=== PATIENT | female | born 1955 | race Caucasian/White ===

== ENCOUNTER 2019-08-18 07:34 | Day surgery (SDC) | payer OTHER ==
[~2019-08-18] VITALS: Ht 162.6 cm; Wt 73.5 kg
[~2019-08-18 07:34] MED LIST: DOCU100C16 PO; LEVO112T2 PO; LIDOCAINE 2% INJ 100 MG/5 ML SDV (FOR ANES.) As Ordered ONE; NS 1,000 ML IV ONE; PROPOFOL 200 MG/20 ML VIAL As Ordered ONE; SENN-83 PO
--- NOTE | 2019-08-18 10:03 | ROOR ---
Patient Name: Gissel Diego Procedure Date: 08/18/2019 9:11 AM Date of : 1955 Age: 64 Room: [facility] Gender: Female Note Status: Finalized Procedure: Colonoscopy Indications: Screening for colorectal malignant neoplasm Providers: Thaddeus Navarro MD Referring MD: Kalin ELLSWORTH MD Requesting Provider: Medicines: Monitored Anesthesia Care Complications: No immediate complications. Procedure: Pre-Anesthesia Assessment: - Prior to the procedure, a History and Physical was performed, and patient medications and allergies were reviewed. The patient is competent. The risks and benefits of the procedure and the sedation options and risks were discussed with the patient. All questions were answered and informed consent was obtained. Patient identification and proposed procedure were verified by the physician, the nurse and the anesthesiologist in the procedure room. Mental Status Examination: alert and oriented. Airway Examination: normal oropharyngeal airway and neck mobility. Respiratory Examination: clear to auscultation. CV Examination: normal. Prophylactic Antibiotics: The patient does not require prophylactic antibiotics. Prior Anticoagulants: The patient has taken no previous anticoagulant or antiplatelet agents. ASA Grade Assessment: II - A patient with mild systemic disease. After reviewing the risks and benefits, the patient was deemed in satisfactory condition to undergo the procedure. The anesthesia plan was to use monitored anesthesia care (MAC). Immediately prior to administration of medications, the patient was re-assessed for adequacy to receive sedatives. The heart rate, respiratory rate, oxygen saturations, blood pressure, adequacy of pulmonary ventilation, and response to care were monitored throughout the procedure. The physical status of the patient was re-assessed after the procedure. The Colonoscope was introduced through the anus and advanced to the terminal ileum, with identification of the appendiceal orifice and IC valve. The colonoscopy was performed without difficulty. The patient tolerated the procedure well. The quality of the bowel preparation was good. The ileocecal valve, appendiceal orifice, and rectum were photographed. Scope insertion time was 3 minutes. Scope withdrawal time was 9 minutes. The total duration of the procedure was 18 minutes. Findings: The perianal and digital rectal examinations were normal. The terminal ileum appeared normal. A 6 mm polyp was found in the ascending colon. The polyp was sessile. The polyp was removed with a cold snare. Resection and retrieval were complete. Verification of patient identification for the specimen was done by the physician and nurse using the patient's name, date and medical record number. Estimated blood loss was minimal. Two sessile polyps were found in the transverse colon. The polyps were 5 to 6 mm in size. These polyps were removed with a hot snare. Resection and retrieval were complete. Two sessile polyps were found in the rectum. The polyps were 5 to 6 mm in size. These polyps were removed with a cold snare. Resection and retrieval were complete. A 15 mm polyp was found in the rectum. The polyp was sessile. The polyp was removed with a hot snare. Resection and retrieval were complete. Non-bleeding external and internal hemorrhoids were found during retroflexion. The hemorrhoids were medium-sized. Impression: - The examined portion of the ileum was normal. - One 6 mm polyp in the ascending colon, removed with a cold snare. Resected and retrieved. - Two 5 to 6 mm polyps in the transverse colon, removed with a hot snare. Resected and retrieved. - Two 5 to 6 mm polyps in the rectum, removed with a cold snare. Resected and retrieved. - One 15 mm polyp in the rectum, removed with a hot snare. Resected and retrieved. - Non-bleeding external and internal hemorrhoids. Recommendation: - Patient has a contact number available for emergencies. The signs and symptoms of potential delayed complications were discussed with the patient. Return to normal activities tomorrow. Written discharge instructions were provided to the patient. - High fiber diet. - Continue present medications. - Await pathology results. - Repeat colonoscopy in 1 year to review the polypectomy site and for surveillance of multiple polyps. - Telephone GI clinic for pathology results in 2 weeks. - Return to primary care physician. Thaddeus Navarro MD Thaddeus Navarro MD 08/18/2019 10:03:19 AM Electronically signed by Thaddeus Navarro MD Number of Addenda: 0 Note Initiated On: 08/18/2019 9:11 AM Estimated Blood Loss: Estimated blood loss was minimal.
[2019-08-18 10:28] VITALS: BP 122/75
== END 2019-08-18 10:33 | disposition home or self-care (01) ==
LOC: M OPP 07:34
PROVIDERS: ATTEND Internal Medicine Gastroenterology
DX: K64.8 Other hemorrhoids (principal); K62.1 Rectal polyp; D12.2 Benign neoplasm of ascending colon; D12.3 Benign neoplasm of transverse colon; K59.09 Other constipation; F17.210 Nicotine dependence, cigarettes, uncomplicated; Z79.899 Other long term (current) drug therapy

== ENCOUNTER 2019-12-15 06:25 | Day surgery (SDC) | payer OTHER ==
[~2019-12-15] VITALS: Ht 162.6 cm; Wt 72.6 kg
[~2019-12-15 06:25] MED LIST changes: -LIDOCAINE 2% INJ 100 MG/5 ML SDV (FOR ANES.) As Ordered ONE; +LORA-622 PO; -PROPOFOL 200 MG/20 ML VIAL As Ordered ONE
[2019-12-15] MEDS ORDERED: SIMETHICONE 40MG/0.6ML DROPS 30ML As Ordered ONE (06:53)
[2019-12-15] MEDS ORDERED: propofoL 200 MG/20 ML VIAL As Ordered ONE (07:34)
[2019-12-15] MEDS ORDERED: LIDOCAINE 2% INJ 100 MG/5 ML SDV (FOR ANES.) As Ordered ONE (07:34)
--- NOTE | 2019-12-15 08:07 | ROOR ---
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 Procedure: Pre-Anesthesia Assessment: - Prior to the procedure, a History and Physical was performed, and patient medications and allergies were reviewed. The patient is competent. The risks and benefits of the procedure and the sedation options and risks were discussed with the patient. All questions were answered and informed consent was obtained. Patient identification and proposed procedure were verified by the physician, the nurse and the anesthesiologist in the procedure room. Mental Status Examination: alert and oriented. Airway Examination: normal oropharyngeal airway and neck mobility. Respiratory Examination: clear to auscultation. CV Examination: normal. Prophylactic Antibiotics: The patient does not require prophylactic antibiotics. Prior Anticoagulants: The patient has taken no previous anticoagulant or antiplatelet agents. ASA Grade Assessment: II - A patient with mild systemic disease. After reviewing the risks and benefits, the patient was deemed in satisfactory condition to undergo the procedure. The anesthesia plan was to use monitored anesthesia care (MAC). Immediately prior to administration of medications, the patient was re-assessed for adequacy to receive sedatives. The heart rate, respiratory rate, oxygen saturations, blood pressure, adequacy of pulmonary ventilation, and response to care were monitored throughout the procedure. The physical status of the patient was re-assessed after the procedure. The Colonoscope was introduced through the anus and advanced to the left transverse colon. The flexible sigmoidoscopy was accomplished without difficulty. The patient tolerated the procedure well. Findings: The perianal and digital rectal examinations were normal. Four sessile polyps were found in the rectum. The polyps were 4 to 8 mm in size. These polyps were removed with a cold snare. Resection and retrieval were complete. For hemostasis, one hemostatic clip was successfully placed. There was no bleeding at the end of the procedure. Verification of patient identification for the specimen was done by the physician and nurse using the patient's name, date and medical record number. Estimated blood loss was minimal. A patchy area of granular mucosa was found in the distal rectum. The polyp was removed with a hot biopsy forceps. Resection and retrieval were complete. The exam was otherwise without abnormality. Impression: - Four 4 to 8 mm polyps in the rectum, removed with a cold snare. Resected and retrieved. Clip was placed. - Granularity in the distal rectum. - The examination was otherwise normal. Recommendation: - The patient will be observed post-procedure, until all discharge criteria are met. - Patient has a contact number available for emergencies. The signs and symptoms of potential delayed complications were discussed with the patient. Return to normal activities tomorrow. Written discharge instructions were provided to the patient. - High fiber diet. - Miralax 1 capful (17 grams) in 8 ounces of water PO BID for 1 week. - Await pathology results. - Repeat flexible sigmoidoscopy in 6 months for surveillance. - Return to GI clinic in 6 months. - Return to primary care physician. Thaddeus Navarro MD Thaddeus Navarro MD 12/15/2019 8:06:29 AM Electronically signed by Thaddeus Navarro MD Number of Addenda: 0 Note Initiated On: 12/15/2019 7:32 AM Estimated Blood Loss: Estimated blood loss was minimal.
[2019-12-15 08:20] VITALS: BP 115/70
== END 2019-12-15 08:35 | disposition home or self-care (01) ==
LOC: M OPP 06:25
PROVIDERS: ATTEND Internal Medicine Gastroenterology
DX: K62.1 Rectal polyp (principal); K62.89 Other specified diseases of anus and rectum; D01.2 Carcinoma in situ of rectum; Z79.899 Other long term (current) drug therapy; F17.210 Nicotine dependence, cigarettes, uncomplicated

== ENCOUNTER → 2020-06-05 | Outpatient (CLI) | payer OTHER ==
[~2020-06-05] MED LIST changes: +ANAS1TAB2 PO; +MECL-86; -NS 1,000 ML IV ONE; +OMEP-221 PO; +ULTR50TA8 PO
--- NOTE | 2020-06-07 01:04 | REP ---
READING OF OUTSIDE MAMMOGRAM AND ULTRASOUND PERFORMED AT [facility]: Bilateral mammogram dated 05/15/2020, diagnostic mammogram dated 05/22/2020, and right breast ultrasound dated 05/22/2020. Bilateral mammogram performed in the MLO and CC projections with 3D tomosynthesis on 05/15/2020. This is compared to the prior mammogram of 10/05/2018. Both were performed at [facility]. There is moderate fibroglandular tissue bilaterally. Intramammary lymph node is noted in the upper outer right breast as well as in the upper outer left breast. No new mass is seen bilaterally. No architectural distortion is visualized. There are new pleomorphic microcalcifications identified at 6 o'clock in the right breast. Coarse benign-type calcifications are also seen bilaterally. Diagnostic mammogram right breast performed with spot compression and magnification views performed. Parenchymal pattern is unremarkable. Intramammary lymph node seen in the upper outer quadrant of the right breast. An area of suspicious pleomorphic microcalcifications are clustered at the 6-o'clock region of the right breast. Most of the calcifications are in the medial and lateral periphery of this geographic cluster. Ultrasound of the right breast demonstrates a small cyst at 12 o'clock with a maximum diameter of 4 mm. Images are also noted of the intramammary lymph node in the upper outer quadrant of the right breast, with an echogenic fatty hilum, measuring 8 mm in diameter. OVERALL IMPRESSION: ACR 4, suspicious. Clustered pleomorphic microcalcifications 6 o'clock right breast, for which stereotactic biopsy is recommended. No suspicious mass or architectural distortion is seen bilaterally mammographically. BIRADS 4: BI-RADS/ACR category 4 mammogram. Suspicious Abnormality - biopsy should be considered. Electronically Signed by Tristian Cherry MD 06/10/2020 09:16 A
== END ==
LOC: M RAD 14:15
PROVIDERS: ATTEND Surgery
DX: N63.15 Unspecified lump in the right breast, overlapping quadrants (principal)

== ENCOUNTER → 2020-06-12 | Outpatient (CLI) | payer OTHER ==
[2020-06-12 11:38] LABS: BASO # 0.1 10^3/uL (0.0-0.2); BASO % 0.8 % (0.0-1.0); EOS # 0.1 10^3/uL (0.0-0.5); EOS % 1.3 % (0.0-3.0); HEMATOCRIT 45.4 % (36.0-47.0); HEMOGLOBIN 14.9 g/dl (12.0-15.5); LYMPH # 2.7 10^3/uL (1.5-5.0); LYMPH % 33.5 % (24.0-44.0); MEAN CORPUSCULAR HEMOGLOBIN 32.2 pg (27.0-33.0); MEAN CORPUSCULAR HGB CONC 32.8 g/dl (32.0-36.5); MEAN CORPUSCULAR VOLUME 98.1 fl (80.0-96.0); MONO # 0.5 10^3/uL (0.0-0.8); MONO % 6.8 % (0.0-5.0); NEUTROPHILS # 4.6 10^3/uL (1.5-8.5); NEUTROPHILS % 57.3 % (36.0-66.0); PLATELET COUNT, AUTOMATED 194 10^3/uL (150-450); RED BLOOD COUNT 4.63 10^6/uL (4.00-5.40)
[2020-06-12 12:05] LABS: ALBUMIN 3.9 GM/DL (3.2-5.2); ALT/SGPT 27 U/L (12-78); BILIRUBIN,DIRECT 0.2 MG/DL (0.0-0.2); BILIRUBIN,TOTAL 0.6 MG/DL (0.2-1.0); BLOOD UREA NITROGEN 12 MG/DL (7-18); GLOMERULAR FILTRATION RATE > 60.0 (>45); IRON (FE) 87 UG/DL (50-170); PERCENT SATURATION 33.3 % (13.2-45.0); TOTAL IRON BINDING CAPACITY 261 UG/DL (250-450); TOTAL PROTEIN 7.2 GM/DL (6.4-8.2)
[2020-06-12 12:11] LABS: VITAMIN B12 LEVEL 332 PG/ML
[2020-06-12 12:12] LABS: FOLATE > 24.0 NG/ML
[2020-06-12 12:14] LABS: H PYLORI QUALITATIVE IgG NEGATIVE (NEGATIVE)
== END ==
LOC: M LAB 10:42
PROVIDERS: ATTEND Internal Medicine Gastroenterology
DX: K62.1 Rectal polyp (principal)

== ENCOUNTER → 2020-07-21 | Outpatient (CLI) | payer OTHER | LOC: M LABSMTC 09:39 | PROVIDERS: ATTEND Anesthesiology | DX: Z01.812 Encounter for preprocedural laboratory examination (principal); Z20.828 Contact with and (suspected) exposure to other viral communicable diseases | CPT/HCPCS: C9803; U0003 ==

== ENCOUNTER → 2020-07-23 | Outpatient (CLI) | payer OTHER ==
[2020-07-23 18:04] VITALS: BP 122/74
--- NOTE | 2020-08-20 12:57 | REP ---
POSTBIOPSY MAMMOGRAM RIGHT BREAST FINDINGS: Two clusters of adjacent microcalcifications are targeted and biopsied stereotactically in the inferior aspect of the right breast using a caudal to cranial approach. ML and CC views of the right breast following the two biopsies show two adjacent metallic clips at the site of the targeted calcifications. Multiple calcifications have been stereotactically removed and sampled. Biopsy appears to have been successful. MTDD
--- NOTE | 2020-08-20 12:58 | REP ---
RADIOGRAPHS FOLLOWING STEREOTACTIC BIOPSY RIGHT BREAST: FINDINGS: Two adjacent clusters of microcalcifications are targeted and biopsied stereotacticly in the inferior aspect of the right breast. The first set of biopsy specimens show multiple calcifications in the specimens indicating successful biopsy. The second set of specimens show multiple calcification in the specimens indicating successful biopsy. MTDD
== END ==
LOC: M WHCPRO 13:45
PROVIDERS: ATTEND Surgery
DX: D05.11 Intraductal carcinoma in situ of right breast (principal)

== ENCOUNTER 2020-07-26 06:41 | Day surgery (SDC) | payer OTHER ==
[~2020-07-26] VITALS: Ht 165.1 cm; Wt 68.9 kg
[~2020-07-26 06:41] MED LIST changes: -ANAS1TAB2 PO; +LR 1,000 ML IV ONE; -MECL-86; -OMEP-221 PO; -ULTR50TA8 PO
[2020-07-26] MEDS ORDERED: SIMETHICONE 40MG/0.6ML DROPS 30ML As Ordered ONE (07:05)
[2020-07-26] MEDS ORDERED: LIDOCAINE 2% 100MG/5ML SDV (FOR ANES.) As Ordered ONE (07:09)
[2020-07-26] MEDS ORDERED: propofoL 200 MG/20 ML VIAL As Ordered ONE (07:09)
[2020-07-26] MEDS ORDERED: fentaNYL 100 MCG/2 ML INJECTION (J3010) As Ordered ONE (07:42)
[2020-07-26 08:45] VITALS: BP 109/62
--- NOTE | 2020-07-31 11:37 | ROOR ---
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 Procedure: Pre-Anesthesia Assessment: - Prior to the procedure, a History and Physical was performed, and patient medications and allergies were reviewed. The patient is competent. The risks and benefits of the procedure and the sedation options and risks were discussed with the patient. All questions were answered and informed consent was obtained. Patient identification and proposed procedure were verified by the physician, the nurse and the anesthesiologist in the procedure room. Mental Status Examination: alert and oriented. Airway Examination: normal oropharyngeal airway and neck mobility. Respiratory Examination: clear to auscultation. CV Examination: normal. Prophylactic Antibiotics: The patient does not require prophylactic antibiotics. Prior Anticoagulants: The patient has taken no previous anticoagulant or antiplatelet agents. ASA Grade Assessment: II - A patient with mild systemic disease. After reviewing the risks and benefits, the patient was deemed in satisfactory condition to undergo the procedure. The anesthesia plan was to use monitored anesthesia care (MAC). Immediately prior to administration of medications, the patient was re-assessed for adequacy to receive sedatives. The heart rate, respiratory rate, oxygen saturations, blood pressure, adequacy of pulmonary ventilation, and response to care were monitored throughout the procedure. The physical status of the patient was re-assessed after the procedure. The Colonoscope was introduced through the anus and advanced to the splenic flexure. The flexible sigmoidoscopy was accomplished without difficulty. The patient tolerated the procedure well. Findings: The perianal and digital rectal examinations were normal. Three sessile polyps were found in the recto-sigmoid colon. The polyps were 4 to 5 mm in size. These polyps were removed with a cold biopsy forceps. Resection and retrieval were complete. Verification of patient identification for the specimen was done by the physician and nurse using the patient's name, date and medical record number. Estimated blood loss was minimal. A patchy area of mildly erythematous mucosa was found in the distal rectum. Biopsies were taken with a cold forceps for histology. Non-bleeding external hemorrhoids were found during retroflexion. The hemorrhoids were medium-sized. Impression: - Three 4 to 5 mm polyps at the recto-sigmoid colon, removed with a cold biopsy forceps. Resected and retrieved. - Erythematous mucosa in the distal rectum. Biopsied. - Non-bleeding external hemorrhoids. Recommendation: - The patient will be observed post-procedure, until all discharge criteria are met. - Patient has a contact number available for emergencies. The signs and symptoms of potential delayed complications were discussed with the patient. Return to normal activities tomorrow. Written discharge instructions were provided to the patient. - High fiber diet. - Follow the recommendations as per the other procedure note. - Await pathology results. - Telephone GI clinic for pathology results in 2 weeks. - Return to primary care physician. Thaddeus Navarro MD Thaddeus Navarro MD 07/26/2020 8:41:32 AM Electronically signed by Thaddeus Navarro MD Number of Addenda: 0 Note Initiated On: 07/26/2020 7:34 AM Estimated Blood Loss: Estimated blood loss was minimal.
--- NOTE | 2020-07-31 11:37 | ROOR ---
Patient Name: Gissel Diego Procedure Date: 07/26/2020 7:37 AM Date of : 1955 Age: 65 Room: [facility] Gender: Female Note Status: Finalized Procedure: Upper GI endoscopy Indications: Dyspepsia, Nausea with vomiting Providers: Thaddeus Navarro MD Referring MD: Brooks Qureshi Requestnico Provider: Medicines: Monitored Anesthesia Care Complications: No immediate complications. Procedure: Pre-Anesthesia Assessment: - Prior to the procedure, a History and Physical was performed, and patient medications and allergies were reviewed. The patient is competent. The risks and benefits of the procedure and the sedation options and risks were discussed with the patient. All questions were answered and informed consent was obtained. Patient identification and proposed procedure were verified by the physician, the nurse and the anesthesiologist in the procedure room. Mental Status Examination: alert and oriented. Airway Examination: normal oropharyngeal airway and neck mobility. Respiratory Examination: clear to auscultation. CV Examination: normal. Prophylactic Antibiotics: The patient does not require prophylactic antibiotics. Prior Anticoagulants: The patient has taken no previous anticoagulant or antiplatelet agents. ASA Grade Assessment: II - A patient with mild systemic disease. After reviewing the risks and benefits, the patient was deemed in satisfactory condition to undergo the procedure. The anesthesia plan was to use monitored anesthesia care (MAC). Immediately prior to administration of medications, the patient was re-assessed for adequacy to receive sedatives. The heart rate, respiratory rate, oxygen saturations, blood pressure, adequacy of pulmonary ventilation, and response to care were monitored throughout the procedure. The physical status of the patient was re-assessed after the procedure. The Endoscope was introduced through the mouth, and advanced to the second part of duodenum. The upper GI endoscopy was accomplished without difficulty. The patient tolerated the procedure well. Findings: The examined esophagus was normal. The Z-line was regular and was found 38 cm from the incisors. Scattered moderate inflammation characterized by erosions, erythema and granularity was found in the gastric body and in the gastric antrum. Biopsies were taken with a cold forceps for Helicobacter pylori testing. Verification of patient identification for the specimen was done by the physician and nurse using the patient's name, date and medical record number. Estimated blood loss was minimal. One non-bleeding superficial duodenal ulcer with no stigmata of bleeding was found in the first portion of the duodenum. The lesion was 8 mm in largest dimension. Two biopsies were obtained in the duodenal bulb and in the second portion of the duodenum with cold forceps for evaluation of celiac disease. Impression: - Normal esophagus. - Z-line regular, 38 cm from the incisors. - Gastritis. Biopsied. - Non-bleeding duodenal ulcer with no stigmata of bleeding. - Two biopsies were obtained in the duodenal bulb and in the second portion of the duodenum. Recommendation: - Patient has a contact number available for emergencies. The signs and symptoms of potential delayed complications were discussed with the patient. Return to normal activities tomorrow. Written discharge instructions were provided to the patient. - High fiber diet. - Continue present medications. - Use a proton pump inhibitor PO daily for 6 weeks. - Await pathology results. - If Biopsy shows H. pylori will need therapy with antibiotic course.. - Telephone GI clinic for pathology results in 2 weeks. - Return to primary care physician. Thaddeus Navarro MD Thaddeus Navarro MD 07/26/2020 8:29:08 AM Electronically signed by Thaddeus Navarro MD Number of Addenda: 0 Note Initiated On: 07/26/2020 7:37 AM Estimated Blood Loss: Estimated blood loss was minimal.
[2020-09-10] MEDS ORDERED: MECL-86 (11:45)
[2020-09-10] MEDS ORDERED: OMEP-221 PO (11:45)
[2020-09-27] MEDS ORDERED: ANAS1TAB2 PO (09:29)
== END 2020-07-26 08:58 | disposition home or self-care (01) ==
LOC: M OPP 06:41
PROVIDERS: ATTEND Internal Medicine Gastroenterology
DX: K63.5 Polyp of colon (principal); K62.89 Other specified diseases of anus and rectum; K64.4 Residual hemorrhoidal skin tags; Z86.004 Personal history of in-situ neoplasm of other and unspecified digestive organs; K92.1 Melena; K29.70 Gastritis, unspecified, without bleeding; K26.9 Duodenal ulcer, unspecified as acute or chronic, without hemorrhage or perforation; Z08 Encounter for follow-up examination after completed treatment for malignant neoplasm; E03.9 Hypothyroidism, unspecified; F17.210 Nicotine dependence, cigarettes, uncomplicated; Z79.899 Other long term (current) drug therapy
CPT/HCPCS: 43239; 45331; 88305; J3010

== ENCOUNTER → 2020-07-31 | Outpatient (CLI) | payer OTHER ==
[~2020-07-31] MED LIST changes: +ANAS1TAB2 PO; -LR 1,000 ML IV ONE; +MECL-86; +OMEP-221 PO; +ULTR50TA8 PO
[2020-07-31 17:28] LABS: BLOOD UREA NITROGEN 9 MG/DL (7-18); CALCIUM LEVEL 10.1 MG/DL (8.8-10.2); CARBON DIOXIDE LEVEL 32 MEQ/L (21-32); CHLORIDE LEVEL 104 MEQ/L (98-107); GLOMERULAR FILTRATION RATE > 60.0 (>45); GLUCOSE, FASTING 93 MG/DL (70-100); POTASSIUM SERUM 4.3 MEQ/L (3.5-5.1); SODIUM LEVEL 137 MEQ/L (136-145)
== END ==
LOC: M PLALAB 13:24
PROVIDERS: ATTEND Surgery
DX: Z01.818 Encounter for other preprocedural examination (principal)

== ENCOUNTER → 2020-08-07 | Outpatient (CLI) | payer OTHER ==
[2020-08-07 11:34] VITALS: BP 128/62
--- NOTE | 2020-08-07 17:48 | ROOPDOC ---
[facility] Report Of Operation Report of Operation DATE OF PROCEDURE: 08/07/20 PREPROCEDURE DIAGNOSES: right breast suspicious nodule POSTPROCEDURE DIAGNOSES: same PROCEDURE: US guided biopsy of right breast suspicious nodule SURGEON: Molina Angel ANESTHESIA:local ESTIMATED BLOOD LOSS: minimal COMPLICATIONS: none REMARKS: Postbiopsy clips seen in appropriate location on mammogram DESCRIPTION OF PROCEDURE: Lidocaine 1% LOT [id number] Expiration 06/2023 Sodium Bicarbonate 8.4% LOT [id number] Expiration 04/2021 Hydromark clip LOT [id number] Expiration 03/2023 SHAPE 4 Bx device: BARD [id number] x10 cm LOT [id number] Expiration 03/2023 Informed consent was obtained. The most common risk and possible complications including bleeding, hematoma, bruising, infection, injury to surrounding structures were explained to the patient and she expressed understanding. Patient was placed on the bed in the supine position. Appropriate time out was done stating patients name, date of , and the procedure to be performed. The right breast was prepped and draped in the usual fashion. The ultrasound was used to confirm the location of the lesion in the right breast at 12:00 3 centimeters from the nipple. Plain Lidocaine 1% and 8.4% sodium bicarbonate 10:1 mix was used to anesthetize the skin, the biopsy site and tissues along the anticipated biopsy tract. Small skin incision was made with blade number 11. BARD Marquee 14G cannula with introducer ([id number]) was inserted through the incision and advanced under the ultrasound guidance to position immediately adjacent to the lesion. Next, the introducer was removed and BARD Marquee 14G biopsy device was places in the cannula. Pre-biopsy imaging, and post-biopsy imaging were captured. Five good core biopsies were taken at various levels of the lesion. Specimen was placed in formaldehyde, labeled with appropriate biopsy site and patients name, and sent to pathology for evaluation. Next, the biopsy device was withdrawn and a clip introducer was inserted into the biopsy site via the cannula. The SHAPE 4 Hydromark clip was deployed under sonographic guidance. Post-clip placement image was captured. Manual pressure over the biopsy cavity and tract was held after the clip introducer was withdrawn. No bleeding was noted upon removal of the pressure. Post-biopsy mammogram of the right breast was obtained and showed clip in expected position. Postprocedural dressing was placed. Patient tolerated procedure well. Discharge instructions were discussed with the patient and the patient expressed understanding. MOLINA ANGEL DO Aug 07, 2020 17:48
--- NOTE | 2020-08-22 10:33 | REP ---
RIGHT BREAST ULTRASOUND GUIDANCE: HISTORY: Right breast mass. FINDINGS: Sonographic guidance is provided to Dr. Connolly who performed an ultrasound- guided needle biopsy procedure with marker clip placement. LEE
--- NOTE | 2020-08-22 10:33 | REP ---
DIGITAL DIAGNOSTIC UNILATERAL RIGHT BREAST MAMMOGRAPHY WITH CAD 2-VIEWS HISTORY: Marker clip placement study. Patient immediately status post ultrasound-guided needle biopsy right breast for ultrasound target of a 6-mm nodule. COMPARISON: Mammography 07/23/2020 and sonography 06/14/2020. FINDINGS: The previously placed needle biopsy marker clip is again seen at the 6 o'clock position. There is a new needle biopsy marker clip visible in the superomedial quadrant region. No other change. IMPRESSION: Two needle biopsy marker clips now noted in place. Patient is status post ultrasound-guided needle biopsy and clip placement on this date. MTDD
== END ==
LOC: M WHCPRO 08:41
PROVIDERS: ATTEND Surgery
DX: N60.21 Fibroadenosis of right breast (principal); D24.1 Benign neoplasm of right breast

== ENCOUNTER → 2020-08-15 | Outpatient (CLI) | payer OTHER ==
[~2020-08-15] MED LIST changes: +PROHANCE 279.3MG/ML 15ML VIAL As Ordered ONE
--- NOTE | 2020-08-22 10:35 | REP ---
MRI BILATERAL BREASTS WITH AND WITHOUT CONTRAST HISTORY: Right breast cancer. 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 Ultrasound-guided biopsy of a hypoechoic nodule in the 12 o'clock region of the right breast 08/07/2020, yielded pathology results of fibroadenoma. TECHNIQUE: Multiple sequences are obtained in the axial, coronal, and sagittal planes prior to and following the intravenous administration of 13 mL ProHance. Images are evaluated in the [employer] software including dynamic, post IV gadolinium, axial T1 fat sat images, subtraction images, color overlay images, CAD images, and MIP reconstruction images. FINDINGS: There is moderate diffuse fibroglandular tissue present. There is moderate heterogeneous background parenchymal enhancement bilaterally. A nonenlarged intramammary lymph node is seen in the upper outer quadrant of each breast. No axillary adenopathy is seen. Two biopsy clips are seen inferiorly in the right breast surrounded by a tiny amount of fluid, at the site of prior stereotactic biopsies (ductal carcinoma in situ). There is also a biopsy clip in the upper right breast surrounded by a small amount of fluid (biopsy result fibroadenoma). I see no suspicious enhancing mass or morphologic abnormality bilaterally. The moderate degree of heterogeneous background parenchymal enhancement somewhat limits the study. I see no other significant finding. IMPRESSION: BI-RADS Category 6 known right breast cancer. 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 Ultrasound- guided biopsy upper right breast yielded biopsy result of fibroadenoma. MRI shows heterogeneous background parenchymal enhancement bilaterally with no evidence of suspicious enhancing mass or morphologic abnormality. [facility]
== END ==
LOC: M RAD 12:05
PROVIDERS: ATTEND Surgery
DX: C50.911 Malignant neoplasm of unspecified site of right female breast (principal)
CPT/HCPCS: A9576; C8908

== ENCOUNTER → 2020-09-12 | Outpatient (CLI) | payer OTHER ==
[~2020-09-12] MED LIST changes: -PROHANCE 279.3MG/ML 15ML VIAL As Ordered ONE
== END ==
LOC: M LABSMTC 10:00
PROVIDERS: ATTEND Anesthesiology
DX: Z11.59 Encounter for screening for other viral diseases (principal)
CPT/HCPCS: C9803; U0003

== ENCOUNTER 2020-09-17 08:35 | Inpatient (IN) | payer OTHER ==
[~2020-09-17] VITALS: Ht 162.6 cm; Wt 69.3 kg
[~2020-09-17 08:35] MED LIST changes: -ANAS1TAB2 PO; +HEPARIN SOD (PORCINE) 5000UNITS/ML 1ML VIAL/SYRINGE SQ ONE; +LIDOCAINE 1% MDV 20ML VIAL SQ PRN; +LR 1,000 ML IV ONE; +OMEP-221; -OMEP-221 PO; -ULTR50TA8 PO; +ceFAZolin SOD 2 GM in IV 1 EA IV ONE
[2020-09-17] MEDS ORDERED: ROCURONIUM BROMIDE 50 MG/5 ML VIAL As Ordered ONE (11:53)
[2020-09-17] MEDS ORDERED: LIDOCAINE 2% 100MG/5ML SDV (FOR ANES.) As Ordered ONE (11:53)
[2020-09-17] MEDS ORDERED: METOCLOPRAMIDE INJ 10MG/2ML VIAL (J2765 PER 1) As Ordered ONE (11:53)
[2020-09-17] MEDS ORDERED: ONDANSETRON 4MG/2ML VIAL As Ordered ONE ×2 (11:53→17:52)
[2020-09-17] MEDS ORDERED: propofoL 200 MG/20 ML VIAL As Ordered ONE (11:53)
[2020-09-17] MEDS ORDERED: MIDAZOLAM INJ 2MG/2ML VIAL (J2250 PER 1MG) As Ordered ONE (11:53)
[2020-09-17] MEDS ORDERED: fentaNYL 100 MCG/2 ML INJECTION (J3010) As Ordered ONE (11:54)
[2020-09-17] MEDS ORDERED: BUPIVACAINE LIPOSOME/PF 1.3% 20ML VIAL (13.3MG/ML)(EXPAREL)(C9290 PER1MG) As Ordered ONE (13:13)
[2020-09-17] MEDS ORDERED: ACETAMINOPHEN 1000MG 100ML IV BTL (OFIRMEV) (J0131 PER 10MG) As Ordered ONE (14:17)
[2020-09-17] MEDS ORDERED: HYDROmorphone HCL 2 MG/ML 1ML VIAL (J1170) As Ordered ONE (14:18)
[2020-09-17] MEDS ORDERED: oxyCODONE 5MG TAB PO PRN (16:45)
[2020-09-17] MEDS ORDERED: traMADol 50 MG TAB PO PRN (16:45)
[2020-09-17] MEDS ORDERED: ONDANSETRON 4MG/2ML VIAL IV PRN (16:45)
[2020-09-17] MEDS ORDERED: fentaNYL 100 MCG/2 ML INJECTION (J3010) IV PRN (16:45)
[2020-09-17] MEDS ORDERED: LR 1,000 ML IV SCH (16:45)
[2020-09-17] MEDS ORDERED: MORPHINE 2 MG/ML 1ML VIAL (J2270) IV PRN (16:45)
--- NOTE | 2020-09-17 17:09 | HPEPDOC ---
[facility] Medical History & Physical Date of Admission Sep 17, 2020 Date of Service: Sep 17, 2020 History and Physical Chief complaint: Presented to [facility] for an elective right-sided mastectomy History of present illness: Patient is a 65-year-old female with a PMHx of Hypothyroidism, Constipation, Seasonal allergies, and GERD who presented to [facility] for elective right mastectomy. Patient was noted to an area of her right breast that had an area of calcification of approximately 3 cm. Biopsy on 07/23/2020 was consistent with DCIS. Patient had another biopsy on 08/07 that was consistent with fibroadenoma with myxoid stroma. Patient received preoperative clearance from her primary care provider. Patient was ultimately taken for simple mastectomy without reconstruction with breast surgery. Hospitalist service was called for further evaluation postoperatively. Currently patient is still having the effects of anesthesia wear off is unable to provide very many details. She did however report that she did not experience any chest pain, shortness breath, palpitations, nausea, vomiting, abdominal pain or diarrhea. Past Medical History: Hypothyroidism, Constipation, Seasonal allergies, and GERD Past Surgical History: Multiple colonoscopies Allergies: See below Medications: See below Family History: - Family history of breast cancer Social History: - Denies the use of alcohol, tobacco or illicit drugs - Denies recent travel or sick contacts - Lives with significant other Review of Systems: 10 point review of systems complete, all negative otherwise stated in HPI Physical exam: - Vitals: BP [119/], HR [75], RR [18], Sat [96%RA], Temp [963.8F] - General: Lying in bed, Speaking in full sentences, Drowsy but orientedx3 - HEENT: NC, AT, PERRLA - CVS: RRR, +S1S2 - Chest: Dressing in place, JERRY drain noted - Lungs: Fair air entry bilaterally, No wheezing / rales / rhonchi - Abdomen: Soft, Non-distended, Non-tender - Extremities: No lower extremity edema, No calf tenderness - Neuro: No focal motor or sensory deficit - Skin: No visible rashes Assessment and Plan: Elective right mastectomy (POD#0) - Patient was recently found to have DCIS and fibroadenoma of the right breast - She has received outpatient medical clearance for her procedure - Will continue with pain medication that has already been ordered by breast surgery - Breast surgery will remain on consultation and continue to follow - Will start clear liquid diet and advance as tolerated Hypothyroidism - c/w Levothyroxine Constipation - c/w bowel regimen as ordered Seasonal allergies - c/w Loratadine GERD - c/w Omeprazole DVT prophylaxis - Will start Heparin Vital Signs Vital Signs Date Time Temp Pulse Resp B/P (MAP) Pulse Ox O2 Delivery O2 Flow Rate FiO2 09/17/20 17:00 97.4 68 18 112/57 (75) 96 Nasal Cannula 2 Home Medications Scheduled Docusate Sodium (Docusate Sodium) 100 Mg Capsule, 100 MG PO BID Levothyroxine Sodium (Levothyroxine Sodium) 112 Mcg Tablet, 112 MCG PO DAILY Loratadine (Loratadine) 10 Mg Tablet, 10 MG PO PRN Sennosides (Senna) 8.6 Mg Tablet, 2 TABS PO QHS Miscellaneous Medications Omeprazole (Omeprazole) 40 Mg Capsule. Allergies Coded Allergies: No Known Allergies (Unverified , 09/10/20) KUMAR HURTADO MD Sep 17, 2020 17:09
[2020-09-17 18:12] VITALS: BP 110/64
[2020-09-17 19:40] VITALS: BP 108/63
[2020-09-17 20:40] VITALS: BP 111/63
[2020-09-17] MEDS ORDERED: SENNA 8.6 MG TAB (SENOKOT) PO SCH (21:00)
[2020-09-17 21:40] VITALS: BP 110/61
[2020-09-17] MEDS: DOCUSATE SODIUM 100 MG CAP PO SCH (22:02)
[2020-09-17] MEDS: HEPARIN SOD (PORCINE) 5000UNITS/ML 1ML VIAL/SYRINGE SC SCH (22:03)
[2020-09-17 22:40] VITALS: BP 109/59
[2020-09-17] MEDS: ACETAMINOPHEN TAB 650MG DOSE (2X325MG) PO PRN (22:49)
[2020-09-18 02:00] VITALS: BP 108/62
[2020-09-18 05:39] LABS: HEMATOCRIT 43.7 % (36.0-47.0); HEMOGLOBIN 14.4 g/dl (12.0-15.5); MEAN CORPUSCULAR HEMOGLOBIN 32.7 pg (27.0-33.0); MEAN CORPUSCULAR VOLUME 99.1 fl (80.0-96.0); PLATELET COUNT, AUTOMATED 196 10^3/uL (150-450); RED BLOOD COUNT 4.41 10^6/uL (4.00-5.40); WHITE BLOOD COUNT 13.2 10^3/uL (4.0-10.0)
[2020-09-18 06:00] VITALS: BP 108/59
[2020-09-18] MEDS ORDERED: LEVOTHYROXINE 112MCG TABLET (0.112MG) PO SCH (06:00)
[2020-09-18 06:06] LABS: BLOOD UREA NITROGEN 13 MG/DL (7-18); CALCIUM LEVEL 9.3 MG/DL (8.8-10.2); CARBON DIOXIDE LEVEL 28 MEQ/L (21-32); CHLORIDE LEVEL 105 MEQ/L (98-107); CREATININE FOR GFR 0.77 MG/DL (0.55-1.30); GLOMERULAR FILTRATION RATE > 60.0 (>45); GLUCOSE, FASTING 108 MG/DL (70-100); MAGNESIUM LEVEL 1.9 MG/DL (1.8-2.4); POTASSIUM SERUM 4.2 MEQ/L (3.5-5.1); SODIUM LEVEL 138 MEQ/L (136-145)
[2020-09-18] MEDS: HEPARIN SOD (PORCINE) 5000UNITS/ML 1ML VIAL/SYRINGE SC SCH (06:12)
--- NOTE | 2020-09-18 07:38 | IPNPDOC ---
Subjective General Date Seen: Sep 18, 2020 Subject Chief Complaint/History The patient is a 65-year-old female admitted postop after R breast mastectomy and right sentinel lymph node biopsy done 09/17/20. Patient is doing well post surgery. She was able to void without complications. She ate a toast without nausea and vomiting. She did not have breakfast yet. Her pain is well-controlled. Drain output is minimal. Vitals are stable. Current Medications Current Medications Current Medications Medications (Trade) Dose Ordered Sig/Ra Route PRN Reason Start Time Stop Time Status Last Admin Dose Admin Acetaminophen (Tylenol Tab) 650 mg Q6HP PRN PO PAIN 1-4 09/17/20 16:45 09/17/20 22:49 Docusate Sodium (Colace) 100 mg BID PO 09/17/20 21:00 09/17/20 22:02 Fentanyl Citrate (Sublimaze) 25 mcg Q5MP PRN IV PAIN LEVEL 5-10 09/17/20 16:45 09/17/20 17:45 DC Heparin Sodium (Porcine) (Heparin) 5,000 units Q8H SC 09/17/20 22:00 09/18/20 06:12 Lactated Ringer's 1,000 ml @ 100 mls/hr Q10H IV 09/17/20 16:45 09/17/20 17:45 DC Levothyroxine Sodium (Synthroid) 112 mcg DAILY@0600 PO 09/18/20 06:00 09/18/20 06:12 Lidocaine HCl (LIDOCAINE 1% MDV 20ml) 0.1 ml ONCE PRN SQ DISCOMFORT BEFORE IV START 09/17/20 06:00 09/17/20 16:39 DC Loratadine (Claritin) 10 mg DAILY PO 09/18/20 09:00 Morphine Sulfate (Morphine Sulfate Inj) 2 mg Q3H PRN IV SEVERE PAIN (PS 8-10) 09/17/20 16:45 Omeprazole (PriLOSEC) 40 mg DAILY PO 09/18/20 09:00 Ondansetron HCl (ZOFRAN INJection) 4 mg Q4HP PRN IV NAUSEA OR VOMITING 09/17/20 16:45 09/17/20 17:45 DC Oxycodone HCl (Roxicodone, Oxyir) 5 mg ASDIRECTED PRN PO PAIN LEVEL 1-4 09/17/20 16:45 09/17/20 17:45 DC Senna (Senokot) 2 tab QHS PO 09/17/20 21:00 09/17/20 22:02 Tramadol HCl (Ultram) 50 mg Q6HP PRN PO MODERATE PAIN (PS 5-7) 09/17/20 16:45 Allergies Coded Allergies: No Known Allergies (Unverified , 09/10/20) Objective Physical Examination Examination GENERAL APPEARANCE:Patient seen, laying in bed, awake, alert, and oriented. Comfortable, in no acute distress. SKIN: Warm and moist. BREAST: Left breast has normal appearance. Right chest wall is status post right mastectomy without reconstruction. 2 JERRY drains are in the lateral right chest with serosanguineous drainage. Mastectomy flaps are viable. There is no palpable hematoma. Incision is well approximated. No erythema or drainage from the in cision site. HEENT: Normocephalic, atraumatic. NECK: Supple LUNGS: Breathing comfortably on room air HEART: No tachycardia ABDOMEN: Abdomen is soft EXTREMITIES: Good range of motion of upper extremities Vital Signs Vital Signs Date Time Temp Pulse Resp B/P (MAP) Pulse Ox O2 Delivery O2 Flow Rate FiO2 09/18/20 06:00 98.0 65 18 108/59 (75) 95 Room Air 09/17/20 19:40 1.0 I&Os I&O- Last 24 Hours up to 6 AM 09/18/20 06:00 Intake Total 2420 ml Output Total 540 ml Balance 1880 ml Laboratory Data Labs 24H Laboratory Tests 2 09/18/20 05:30: Nucleated Red Blood Cells % (auto) 0.0, Anion Gap 5L, Glomerular Filtration Rate > 60.0, Calcium Level 9.3, Magnesium Level 1.9 CBC/BMP Laboratory Tests 09/18/20 05:30 Impression 65-year-old lady, current smoker, with a history of right breast cancer, status post right simple mastectomy without reconstruction on the right sentinel lymph node biopsy done on 09/17/20. Recovering well after surgery - Drain teaching per nursing staff, records output in 24 hours intervals. Bring the inform to the office - Postop follow-up appointment scheduled for next Wednesday - Stop IVF, resume previous diet - No heavy lifting, no driving - Okay to discharge home today at lunchtime - medications will be sent to pharmacy, if no significant pain tissues only Tylenol - pls give patient by simple mastectomy discharge instructions - I greatly appreciate help of medicine team in taking care if Ms. Diego Plan / VTE VTE Prophylaxis Ordered?: Yes MOLINA ANGEL DO Sep 18, 2020 07:38
[2020-09-18] MEDS ORDERED: ULTR50TA8 PO (07:43)
[2020-09-18] MEDS: DOCUSATE SODIUM 100 MG CAP PO SCH (08:04)
[2020-09-18] MEDS: ACETAMINOPHEN TAB 650MG DOSE (2X325MG) PO PRN (08:11)
[2020-09-18] MEDS ORDERED: OMEPRAZOLE 20 MG CAP PO SCH (09:00)
[2020-09-18] MEDS ORDERED: LORATADINE 10 MG TAB PO SCH (09:00)
--- NOTE | 2020-09-18 09:06 | DS.PDOC ---
Discharge Summary General Date of Admission 09/17/2020 Date of Discharge 09/18/2020 Discharge Summary PROCEDURES PERFORMED DURING STAY: Simple right mastectomy without reconstruction completed 09/17/[address] Simmons ADMITTING DIAGNOSE / DISCHARGE DIAGNOSES: Elective right mastectomy (POD#1) Hypothyroidism Constipation Seasonal allergies GERD DVT prophylaxis COMPLICATIONS/CHIEF COMPLAINT: Elective R mastectomy HISTORY OF PRESENT ILLNESS: Patient is a 65-year-old female with a PMHx of Hypothyroidism, Constipation, Seasonal allergies, and GERD who presented to [facility] for elective right mastectomy. Patient was noted to an area of her right breast that had an area of calcification of approximately 3 cm. Biopsy on 07/23/2020 was consistent with DCIS. Patient had another biopsy on 08/07 that was consistent with fibroadenoma with myxoid stroma. Patient received preoperative clearance from her primary care provider. Patient was ultimately taken for simple mastectomy without reconstruction with breast surgery. Hospitalist service was called for further evaluation postoperatively. This morning patient was awake and alert, conversing denied any significant prob lems overnight. Denies any chest pain, shortness breath, palpitations. Denies nausea, vomiting, abdominal pain or diarrhea. Has been out of bed ambulating. HOSPITAL COURSE: Elective right mastectomy (POD#1) - Patient was recently found to have DCIS and fibroadenoma of the right breast - She has received outpatient medical clearance for her procedure - Will continue with pain medication that has already been ordered by breast surgery - Breast surgery will remain on consultation and continue to follow; cleared for DC home with outpatient follow up - Advised follow up with Oncology within the next 7 days - Diet has been fully advanced and was tolerated Hypothyroidism - c/w Levothyroxine Constipation - c/w bowel regimen as ordered Seasonal allergies - c/w Loratadine GERD - c/w Omeprazole DVT prophylaxis - c/w Heparin DISCHARGE MEDICATIONS: Please see below. ALLERGIES: Please see below. PHYSICAL EXAMINATION ON DISCHARGE: Vitals (See below) General: Lying in bed, no acute distress, comfortable, AAOx3 HEENT: NC, AT CVS: RRR, +S1S2 Chest: Dressing in place, JERRY drains noted Lungs: Fair air entry b/l, -w/r/r Abdomen: Soft, ND, NT Extremities: - Edema, - Calf tenderness LABORATORY DATA: Please see below. ACTIVITY: [As tolerated]. DISCHARGE PLAN: Follow-up with PCP, Oncology and Dr. Simmons within the next 7 days Remain compliant with treatment plan and medications Return to the ER if you experience any problems DISPOSITION: Home DISCHARGE CONDITION: [Stable]. TIME SPENT ON DISCHARGE: 35 minutes. Vital Signs/I&Os Vital Signs Date Time Temp Pulse Resp B/P (MAP) Pulse Ox O2 Delivery O2 Flow Rate FiO2 09/18/20 06:00 98.0 65 18 108/59 (75) 95 Room Air 09/17/20 19:40 1.0 I&O- Last 24 Hours up to 6 AM 09/18/20 06:00 Intake Total 2420 ml Output Total 540 ml Balance 1880 ml Laboratory Data Labs 24H Laboratory Tests 2 09/18/20 05:30: Nucleated Red Blood Cells % (auto) 0.0, Anion Gap 5L, Glomerular Filtration Rate > 60.0, Calcium Level 9.3, Magnesium Level 1.9 CBC/BMP Laboratory Tests 09/18/20 05:30 Discharge Medications Scheduled Docusate Sodium (Docusate Sodium) 100 Mg Capsule, 100 MG PO BID, (Reported) Levothyroxine Sodium (Levothyroxine Sodium) 112 Mcg Tablet, 112 MCG PO DAILY, (Reported) Loratadine (Loratadine) 10 Mg Tablet, 10 MG PO PRN, (Reported) Sennosides (Senna) 8.6 Mg Tablet, 2 TABS PO QHS, (Reported) Scheduled PRN Tramadol HCl (Ultram) 50 Mg Tablet, 50 MG PO every 6 hours PRN for pain Miscellaneous Medications Omeprazole (Omeprazole) 40 Mg Capsule., (Reported) Allergies Coded Allergies: No Known Allergies (Unverified , 09/10/20) KUMAR HURTADO MD Sep 18, 2020 09:06
[2020-09-18 10:00] VITALS: BP 107/57
--- NOTE | 2020-09-19 15:08 | REP ---
INDICATION: RIGHT BREAST CA. COMPARISON: None. TECHNIQUE/RADIOTRACER AND DOSE: This procedure was performed by Haydee Pettit [facility], under the direct supervision of Dr. Cherry. Images were reviewed with Dr. Cherry prior to dictation. The risks and benefits of the procedure were explained to the patient and informed consent was obtained both orally and written. Directly prior to the start of the procedure, a formal timeout was done in the exam room. Using topical anesthetic and sterile technique 1.022 mCi of technetium 99m filtered sulfur colloid was injected subdermally in 8 fractionated periareolar injections. FINDINGS: Images obtained 1 hour after injection show a right axillary focus. IMPRESSION: Right axillary focus. <Electronically signed by Haydee Pettit > 09/18/20 1713 <Electronically signed by Tristian Cherry > 09/19/20 [id number]
--- NOTE | 2020-09-19 22:21 | ROOPDOC ---
[facility] Report Of Operation Report of Operation DATE OF PROCEDURE: 09/17/20 PREPROCEDURE DIAGNOSES: Right breast cancer POSTPROCEDURE DIAGNOSES: Right breast cancer PROCEDURE: Right simple mastectomy and right sentinel lymph node biopsy, right pectoralis and serratus muscle blocks SURGEON: Molina Connolly ANESTHESIA: general ESTIMATED BLOOD LOSS: Approximately 100 mL. COMPLICATIONS: none REMARKS: all 3 clip sites were marked with double black stitches, the intram ammary LN with high signal was marked with single white stitch. DESCRIPTION OF PROCEDURE: INDICATIONS: Ms. Diego is a 65 year old lady who was found to have suspicious calcifications on her right mammogram spanning 3 cm. Biopsy of the calc ifications at 2 sites was done and both sites were positive for DCIS. She underwent MRI breast and another suspicious lesion at 12:00 in the right breast was identified. This was also biopsied and came back as fibroadenoma. We discussed surgical options and patient opted for simple mastectomy without reconstruction. I explained to the patient that because we are pursuing mastectomy, sentinel lymph nodes should be also evaluated at the time of surgery in case an invasive breast cancer is identified on final pathology. Risks and possible complications of surgical procedure including bleeding, infection and injury to surrounding structures were explained to the patient and she wished to proceed. Consent was signed. Subcutaneous heparin 5000 units was given to patient in the preop area. Lymphoscintigraphy was reviewed preoperatively and the tracer was found in the right axilla. DETAILS: Patient was taken to the operating room and placed supine on the operating room table. Pillow was placed under her knees. Foam was placed under her heels. A sign in was called stating patients name, date of and the procedure to be done. Preoperative antibiotics were infused. Smooth induction of general anesthesia was done. Patients hands were extended on arm rests. Care was taken not to over extend patients arms. Lozano catheter was placed. Pillow was placed under the knees and a foam was placed under the hills. Sequential compression devices were placed and assured to function correctly. Patients right breast and axilla were prepped and draped in the usual fashion. Neoprobe was used to french the site of maximal signal in the axilla. The right breast possible tumor extension was marked on the skin using ultrasound guidance. All 3 right breast biopsy clips were identified with intraop sonography and marked on the skin. Appropriate time out was done and patients name, date of , and the p rocedure to be done were confirmed. Procedure was started with right mastectomy. Thetransverse elliptical incision incorporating skin and nipple areolar complex was made with scalpel number 15. Subcutaneous flaps were developed using electrocautery dissection. Dissection was carried toward the inframammary fold inferiorly, toward sternum medially, toward inferior aspect of clavicle superiorly and toward the axilla laterally. Breast tissue was dissected from the muscle posteriorly and pectoralis fascia was taken with the specimen. The dissection was carried all the way to the [place] making sure that axilla is not entered prematurely. Breast specimen was marked for orientation with short, single, black stitch marking superior edge of mastectomy and long, single, black stitch marking latera edge of mastectomy. All 3 clips sites which were previously marked with the marker on the skin, now were localized with double, black stitches. Upon dissection of the upper lateral flap, there was intramammary lymph node identified, which was previously seen on preop US of this area. This node had a high signal with Neoprobe. This node was marked with the single white stitch. The specimen was weighted and weight of 700 grams was reported. The specimen was then placed in formaldehyde, and passed to pathology. Mastectomy cavity was irrigated and hemostasis was achieved. Next, the attention was turned toward the right axilla which was accessed from the mastectomy site. Clavipectoral fascia was opened over the site of maximum Neoprobe signal. Area of high signal was identified at the lateral border of the pectoralis major muscle. [place] lymph node #1 was identified and 10 second ex-vivo count was 10459. Second sentinel lymph node was identified and the 10 second ex-vivo count was 491. There was a palpable lymph node also identified in the medial axilla which did not have any signal. This was also excised. Specimens were labeled appropriately and sent to pathology. Axilla was explored for presence of any additional lymph nodes and none were identified. 10 second count of the background was 9. The axilla was irrigated and hemostasis was achieved. At this point, two 19 [place] Carlos Manuel drains were placed into the mastectomy cavity and into axilla respectively, through a separate stab incision and secured at the skin with stitches. Next, pectoral and serratus plane blocks on the right side were also done with Exparel. Deep dermal sutures were placed with 2-0 Vicryl to approximate mastectomy site edges. Dermis was closed with 3-0 Vicryl. Skin was closed with 4-0 Monocryl. Surgical glue was applied to the top of the incision. Prineo skin closing system dressing was applied next to the incision. Surgical gauze was placed over the incision and the chest was wrapped with GAVIOTA wrap. Final instruments and sponge count were correct. Patient emerged from general anesthesia without any problems. Olzano was removed. Patient tolerated procedure well and was taken to recovery unit in stable condition. MOLINA CONNOLLY DO Sep 19, 2020 22:21
== END 2020-09-18 14:05 | disposition home or self-care (01) | DRG 362 ==
LOC: M SDC 08:35 → M MS5PR 16:51 → M SDC 18:00 → M MS5PR 18:00 → M SDC 09-18 14:05 → M MS5PR 09-18 14:05
PROVIDERS: ADMIT Internal Medicine; ATTEND Surgery
PROC: 07B50ZX Excision of Right Axillary Lymphatic, Open Approach, Diagnostic (ICD-10-PCS; 2020-09-17)
PROC: 0HTT0ZZ Resection of Right Breast, Open Approach (ICD-10-PCS; principal; 2020-09-17 12:30)
DX: D05.11 Intraductal carcinoma in situ of right breast (principal); D24.1 Benign neoplasm of right breast; N63.10 Unspecified lump in the right breast, unspecified quadrant; R59.9 Enlarged lymph nodes, unspecified; E03.9 Hypothyroidism, unspecified; K21.9 Gastro-esophageal reflux disease without esophagitis; J30.2 Other seasonal allergic rhinitis; K59.00 Constipation, unspecified; F17.218 Nicotine dependence, cigarettes, with other nicotine-induced disorders; E78.49 Other hyperlipidemia; Z79.899 Other long term (current) drug therapy; Z80.3 Family history of malignant neoplasm of breast

== ENCOUNTER 2021-01-09 10:25 | Outpatient (RCR) | payer OTHER ==
[~2021-01-09 10:25] MED LIST changes: +ANAS1TAB2 PO; -HEPARIN SOD (PORCINE) 5000UNITS/ML 1ML VIAL/SYRINGE SQ ONE; -LIDOCAINE 1% MDV 20ML VIAL SQ PRN; -LR 1,000 ML IV ONE; -OMEP-221; +OMEP-221 PO; +ULTR50TA8 PO; -ceFAZolin SOD 2 GM in IV 1 EA IV ONE
== END 2021-01-19 ==
LOC: M PT 10:25
PROVIDERS: ATTEND Surgery
DX: M25.511 Pain in right shoulder (principal)

== ENCOUNTER → 2021-05-16 | Outpatient (CLI) | payer OTHER ==
--- NOTE | 2021-05-16 08:33 | REPMRS ---
Patient History Patient has history of cancer in the right breast at age 65. Family history of breast cancer at age 50 or over in mother. Radio exam Breast Specimen of the right breast, September 17, 2020. Malignant mastectomy of the right breast, September 17, 2020. Benign US guided breast biopsy. of the right breast, August 07, 2020. Malignant stereotatic loc for ea lesion. of the right breast, July 23, 2020. Malignant radio exam breast specimen. of the right breast, July 23, 2020. Patient has signed MRS History Sheet. Diagnostic Unilateral Mammo: Left Breast - May 16, 2021 - Exam #: [id number] CC and MLO view(s) were taken of the left breast. Technologist: RT Giovanni Prior study comparison: August 07, 2020, right breast diagnostic unilateral mammo performed at [facility]. October 05, 2018, bilateral digital mammo screening bilat, performed at [facility]. FINDINGS: There are scattered fibroglandular densities. There has been no change in the appearance of the left breast parenchyma in the interval since the prior examination. There is a intramammary lymph node again visible in the upper outer quadrant of the left breast unchanged.No mass, architectural distortion, or microcalcific grouping has developed. No suspicious finding. 3-D tomosynthesis shows no additional findings. Assessment: BI-RADS/ACR category 2 mammogram. Benign Findings. Recommendation Routine screening mammogram of the left breast in 1 year. This mammogram was interpreted with the aid of an FDA-approved computer-aided dectection system. Electronically Signed By: Eleazar Quintero MD 05/16/21 0833
== END ==
LOC: M WHC 07:42
PROVIDERS: ATTEND Surgery
DX: D05.11 Intraductal carcinoma in situ of right breast (principal); Z90.11 Acquired absence of right breast and nipple; Z80.3 Family history of malignant neoplasm of breast
CPT/HCPCS: 77065; G0279

== ENCOUNTER → 2022-01-01 | Outpatient (CLI) | payer OTHER ==
[~2022-01-01] MED LIST changes: +CALC1TAB30 PO; -OMEP-221 PO; +OMEP40CA5 PO; +SYNT100T PO
== END ==
LOC: M LABSMTC 11:44
PROVIDERS: ATTEND Anesthesiology
DX: Z01.812 Encounter for preprocedural laboratory examination (principal); Z11.52 Encounter for screening for COVID-19

== ENCOUNTER 2022-01-06 12:20 | Day surgery (SDC) | payer OTHER ==
[~2022-01-06] VITALS: Ht 162.6 cm; Wt 72.6 kg
[~2022-01-06 12:20] MED LIST changes: +NS 1,000 ML IV ONE
[2022-01-06] MEDS ORDERED: LIDOCAINE 2% INJ 100 MG/5 ML SYRINGE As Ordered ONE (14:19)
[2022-01-06] MEDS ORDERED: propofoL 200 MG/20 ML VIAL As Ordered ONE (14:19)
[2022-01-06 15:00] VITALS: BP 108/57
== END 2022-01-06 15:11 | disposition home or self-care (01) ==
LOC: M OPP 12:20
PROVIDERS: ATTEND Internal Medicine Gastroenterology
DX: Z12.11 Encounter for screening for malignant neoplasm of colon (principal); Z86.010 Personal history of colon polyps; Z85.048 Personal history of other malignant neoplasm of rectum, rectosigmoid junction, and anus; K64.8 Other hemorrhoids; Z79.899 Other long term (current) drug therapy; F17.210 Nicotine dependence, cigarettes, uncomplicated; Z85.3 Personal history of malignant neoplasm of breast; Z80.1 Family history of malignant neoplasm of trachea, bronchus and lung; Z80.3 Family history of malignant neoplasm of breast

== ENCOUNTER → 2022-05-18 | Outpatient (CLI) | payer OTHER ==
[~2022-05-18] MED LIST changes: -NS 1,000 ML IV ONE
== END ==
LOC: M WHC 09:28
PROVIDERS: ATTEND Nurse Practitioner Women's Health
DX: D05.11 Intraductal carcinoma in situ of right breast (principal)

== ENCOUNTER → 2022-05-18 | Outpatient (CLI) | payer OTHER | LOC: M WHC 09:29 | PROVIDERS: ATTEND Internal Medicine Hematology & Oncology | DX: C50.919 Malignant neoplasm of unspecified site of unspecified female breast (principal) | CPT/HCPCS: 77065; 77080; G0279 ==

== ENCOUNTER → 2022-08-27 | Outpatient (CLI) | payer MEDICARE, OTHER | LOC: M LABSMTC 09:37 | PROVIDERS: ATTEND Anesthesiology | DX: Z01.812 Encounter for preprocedural laboratory examination (principal); Z20.822 Contact with and (suspected) exposure to COVID-19 ==

== ENCOUNTER 2022-09-01 07:52 | Day surgery (SDC) | payer MEDICARE, OTHER ==
[~2022-09-01] VITALS: Ht 162.6 cm; Wt 73.0 kg
[~2022-09-01 07:52] MED LIST changes: +NS 1,000 ML IV ONE
[2022-09-01] MEDS ORDERED: propofoL 500 MG/50 ML VIAL As Ordered ONE (07:58)
[2022-09-01 10:20] VITALS: BP 128/82
== END 2022-09-01 10:34 | disposition home or self-care (01) ==
LOC: M OPP 07:52
PROVIDERS: ATTEND Internal Medicine Gastroenterology
DX: Z12.11 Encounter for screening for malignant neoplasm of colon (principal); Z86.010 Personal history of colon polyps; K64.4 Residual hemorrhoidal skin tags; K64.8 Other hemorrhoids; K62.89 Other specified diseases of anus and rectum; Z98.890 Other specified postprocedural states; Z79.899 Other long term (current) drug therapy; Z79.811 Long term (current) use of aromatase inhibitors; F17.200 Nicotine dependence, unspecified, uncomplicated; E03.9 Hypothyroidism, unspecified; Z85.3 Personal history of malignant neoplasm of breast

== ENCOUNTER → 2023-02-26 | Outpatient (CLI) | payer MEDICARE, OTHER ==
[~2023-02-26] MED LIST changes: -NS 1,000 ML IV ONE
== END ==
LOC: M RAD 08:47
PROVIDERS: ATTEND Nurse Practitioner
DX: Z12.2 Encounter for screening for malignant neoplasm of respiratory organs (principal); F17.219 Nicotine dependence, cigarettes, with unspecified nicotine-induced disorders; D05.11 Intraductal carcinoma in situ of right breast; L98.7 Excessive and redundant skin and subcutaneous tissue; Z80.3 Family history of malignant neoplasm of breast; Z80.1 Family history of malignant neoplasm of trachea, bronchus and lung; Z79.811 Long term (current) use of aromatase inhibitors; Z90.11 Acquired absence of right breast and nipple
CPT/HCPCS: 71271; G0463

== ENCOUNTER → 2023-05-18 | Outpatient (CLI) | payer MEDICARE, OTHER | LOC: M WHC 09:42 | PROVIDERS: ATTEND Nurse Practitioner Women's Health | DX: D05.11 Intraductal carcinoma in situ of right breast (principal) | CPT/HCPCS: 77065; G0279 ==

== ENCOUNTER 2023-08-25 11:40 | Day surgery (SDC) | payer MEDICARE, OTHER ==
[~2023-08-25] VITALS: Ht 162.6 cm; Wt 80.0 kg
[~2023-08-25 11:40] MED LIST changes: +BSS IRRIG/VANCO(10MG)/TOBRA(5MG)/EPINEPH(1:1000-0.5CC)500ML BAG-ORONLY IR ONE; +CEFUROXIME 1MG/0.1ML INTRACAMERAL INJ As Ordered ONE; +CYCLOPENTOLATE 1% OPHTH SOLN 2ML BTL OS SCH; +LIDOCAINE 1% SDV 5ML VIAL As Ordered ONE; +LIDOCAINE 3.5 % 1ML OPHTH TOPICAL GEL OU ONE; +MECL-86 PO; +OFLOXACIN 0.3 % (OCUFLOX) OPTH SOL 5ML OS ONE; +PHENYLEPHRINE 10% OPHTH SOL 5ML OS PRN; +PHENYLEPHRINE 2.5% OPHTH SOL 2ML OS SCH; +TROPICAMIDE 1% OPHTH SOLN 15ML OS SCH
[2023-08-25] MEDS ORDERED: fentaNYL 100 MCG/2 ML INJECTION As Ordered ONE (12:56)
[2023-08-25] MEDS ORDERED: MIDAZOLAM INJ 2MG/2ML VIAL As Ordered ONE (12:56)
[2023-08-25 14:13] VITALS: BP 118/65; TEMP 97.1; O2SAT 98
== END 2023-08-25 14:13 | disposition home or self-care (01) ==
LOC: M SDC 11:40
PROVIDERS: ATTEND Ophthalmology
DX: H25.12 Age-related nuclear cataract, left eye (principal); E03.8 Other specified hypothyroidism; Z79.899 Other long term (current) drug therapy; Z87.891 Personal history of nicotine dependence; Z85.3 Personal history of malignant neoplasm of breast; Z90.11 Acquired absence of right breast and nipple
CPT/HCPCS: 66984; J0697; J2250; J3010; V2632

== ENCOUNTER 2023-09-08 06:11 | Day surgery (SDC) | payer MEDICARE, OTHER ==
[~2023-09-08] VITALS: Ht 162.6 cm; Wt 79.4 kg
[~2023-09-08 06:11] MED LIST changes: -CEFUROXIME 1MG/0.1ML INTRACAMERAL INJ As Ordered ONE; +CYCLOPENTOLATE 1% OPHTH SOLN 2ML BTL OD SCH; -CYCLOPENTOLATE 1% OPHTH SOLN 2ML BTL OS SCH; -LIDOCAINE 1% SDV 5ML VIAL As Ordered ONE; +OFLOXACIN 0.3 % (OCUFLOX) OPTH SOL 5ML OD ONE; -OFLOXACIN 0.3 % (OCUFLOX) OPTH SOL 5ML OS ONE; +PHENYLEPHRINE 10% OPHTH SOL 5ML OD PRN; -PHENYLEPHRINE 10% OPHTH SOL 5ML OS PRN; +PHENYLEPHRINE 2.5% OPHTH SOL 2ML OD SCH; -PHENYLEPHRINE 2.5% OPHTH SOL 2ML OS SCH; +TROPICAMIDE 1% OPHTH SOLN 15ML OD SCH; -TROPICAMIDE 1% OPHTH SOLN 15ML OS SCH
[2023-09-08] MEDS ORDERED: LIDOCAINE 1% SDV 5ML VIAL As Ordered ONE (06:21)
[2023-09-08] MEDS ORDERED: CEFUROXIME 1MG/0.1ML INTRACAMERAL INJ As Ordered ONE (06:22)
[2023-09-08] MEDS ORDERED: LIDOCAINE 1% SDV 5ML VIAL SC PRN (06:35)
[2023-09-08] MEDS ORDERED: fentaNYL 100 MCG/2 ML INJECTION As Ordered ONE (07:20)
[2023-09-08] MEDS ORDERED: MIDAZOLAM INJ 2MG/2ML VIAL As Ordered ONE (07:20)
[2023-09-08 08:15] VITALS: BP 111/66; TEMP 96.8; O2SAT 98
== END 2023-09-08 08:36 | disposition home or self-care (01) ==
LOC: M SDC 06:11
PROVIDERS: ATTEND Ophthalmology
DX: H26.9 Unspecified cataract (principal); E03.9 Hypothyroidism, unspecified; Z79.890 Hormone replacement therapy; Z79.899 Other long term (current) drug therapy; Z85.3 Personal history of malignant neoplasm of breast; Z87.891 Personal history of nicotine dependence
CPT/HCPCS: 66984; J0697; J2250; J3010; V2632

== ENCOUNTER → 2024-05-10 | Outpatient (CLI) | payer MEDICARE, OTHER ==
[~2024-05-10] MED LIST changes: -BSS IRRIG/VANCO(10MG)/TOBRA(5MG)/EPINEPH(1:1000-0.5CC)500ML BAG-ORONLY IR ONE; -CYCLOPENTOLATE 1% OPHTH SOLN 2ML BTL OD SCH; -LIDOCAINE 3.5 % 1ML OPHTH TOPICAL GEL OU ONE; -OFLOXACIN 0.3 % (OCUFLOX) OPTH SOL 5ML OD ONE; -PHENYLEPHRINE 10% OPHTH SOL 5ML OD PRN; -PHENYLEPHRINE 2.5% OPHTH SOL 2ML OD SCH; -TROPICAMIDE 1% OPHTH SOLN 15ML OD SCH
== END ==
LOC: M RAD 07:12
PROVIDERS: ATTEND Specialist
DX: Z87.891 Personal history of nicotine dependence (principal)

== ENCOUNTER → 2024-05-24 | Outpatient (CLI) | payer OTHER | LOC: M WHC 10:17 | PROVIDERS: ATTEND Nurse Practitioner Women's Health | DX: D05.11 Intraductal carcinoma in situ of right breast (principal); Z90.11 Acquired absence of right breast and nipple | CPT/HCPCS: 77065; G0279 ==

== ENCOUNTER → 2025-06-21 | Outpatient (CLI) | payer OTHER ==
[~2025-06-21] MED LIST changes: +LORA-1164 PO; -LORA-622 PO; +SENN-187 PO; -SENN-83 PO
== END ==
LOC: M RAD 09:15
PROVIDERS: ATTEND Physician Assistant
DX: F17.218 Nicotine dependence, cigarettes, with other nicotine-induced disorders (principal); Z90.11 Acquired absence of right breast and nipple

== ENCOUNTER → 2025-10-01 | Outpatient (CLI) | payer OTHER ==
[~2025-10-01] MED LIST changes: +ALBU8.5H; +FLUT1BLS8
== END ==
LOC: M WHC 14:08
PROVIDERS: ATTEND Specialist
DX: Z12.31 Encounter for screening mammogram for malignant neoplasm of breast (principal); N64.9 Disorder of breast, unspecified